=== PATIENT | male | born 2000 | race Caucasian/White ===

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

== ENCOUNTER 2018-02-19 21:35 | Inpatient (IN) | payer OTHER ==
[2018-02-19 23:12] LABS: HEMATOCRIT 45.7 % (42.0-52.0); HEMOGLOBIN 16.1 g/dl (13.5-17.5); MEAN CORPUSCULAR HGB CONC 35.2 g/dl (32.0-36.5); MEAN CORPUSCULAR VOLUME 85.1 fl (80.0-96.0); PLATELET COUNT, AUTOMATED 283 10^3/uL (150-450); RED BLOOD COUNT 5.37 10^6/uL (4.30-6.10); RED CELL DISTRIBUTION WIDTH 12.1 % (11.5-14.5); WHITE BLOOD COUNT 5.9 10^3/uL (4.0-10.0)
[2018-02-19 23:54] LABS: AMPHETAMINES LEVEL URINE NEGATIVE (NEGATIVE); BARBITURATES URINE NEGATIVE (NEGATIVE); BENZODIAZEPINES URINE NEGATIVE (NEGATIVE); CANNABINOIDS URINE NEGATIVE (NEGATIVE); COCAINE METABOLITE URINE NEGATIVE (NEGATIVE); METHADONE URINE NEGATIVE (NEGATIVE); OPIATES URINE NEGATIVE (NEGATIVE); PHENCYCLIDINE URINE NEGATIVE (NEGATIVE)
[2018-02-19 23:55] LABS: ALBUMIN 3.9 GM/DL (3.2-5.2); ALBUMIN/GLOBULIN RATIO 1.11 (1.00-1.93); ALKALINE PHOSPHATASE 72 U/L (45-117); ALT/SGPT 22 U/L (12-78); ANION GAP 8 MEQ/L (8-16); AST/SGOT 12 U/L (7-37); BILIRUBIN,DIRECT 0.1 MG/DL (0.0-0.2); BILIRUBIN,TOTAL 0.4 MG/DL (0.2-1.0); BLOOD UREA NITROGEN 17 MG/DL (7-18); CARBON DIOXIDE LEVEL 27 MEQ/L (21-32); CHLORIDE LEVEL 105 MEQ/L (98-107); CREATININE FOR GFR 1.01 MG/DL (0.70-1.30); GLUCOSE, FASTING 103 MG/DL (70-100); POTASSIUM SERUM 3.9 MEQ/L (3.5-5.1); SALICYLATE LEVEL < 1.7 MG/DL (5.0-30.0); SODIUM LEVEL 140 MEQ/L (136-145); TOTAL PROTEIN 7.4 GM/DL (6.4-8.2)
[2018-02-20 00:05] LABS: ACETAMINOPHEN LEVEL < 2.0 UG/ML (10.0-30.0); ETHYL ALCOHOL (ETHANOL) < 0.003 % (0.000-0.010)
[2018-02-20] MEDS ORDERED: ACETAMINOPHEN TAB 650MG DOSE (2X325MG) PO (02:00)
[2018-02-20] MEDS ORDERED: MAALOX 30 ML SUSP *UDC PO (02:00)
[2018-02-20] MEDS ORDERED: MOM 30ML SUSPENSION UDC PO (02:00)
[2018-02-20] MEDS ORDERED: OLANZapine ORAL DISINTEGRATING TAB 5MG PO (05:15)
[2018-02-20] MEDS: traZODone 50 MG TAB PO (20:10)
[2018-02-21] MEDS: traZODone 50 MG TAB PO (20:53)
[2018-02-22] MEDS: SERTRALINE HCL 25 MG TABLET PO (11:20)
[2018-02-22] MEDS: QUEtiapine FUMARATE 50 MG TAB PO (20:15)
[2018-02-22] MEDS: PRAZOSIN 1 MG CAP PO (20:16)
[2018-02-23] MEDS: SERTRALINE HCL 25 MG TABLET PO (10:07)
== END 2018-02-23 10:50 | disposition home or self-care (01) | DRG 881 ==
LOC: M ED INP 02-20 01:51 → M PSY 02-20 03:36 → M ED 21:35
DX: F32.9 Major depressive disorder, single episode, unspecified (principal); F51.01 Primary insomnia; F43.10 Post-traumatic stress disorder, unspecified; Z91.018 Allergy to other foods; F17.210 Nicotine dependence, cigarettes, uncomplicated

== ENCOUNTER 2018-05-27 08:53 | Emergency (ER) | payer OTHER ==
[2018-05-27] MEDS: KETOROLAC 30 MG/ML VIAL (J1885) IV (09:28)
[2018-05-27] MEDS: dexameTHASONE 20 MG/5 ML VIAL (J1100) IV (09:28)
[2018-05-27 10:01] LABS: CONTROL LINE MONO INT CTR LINE PRESENT; MONO SCRN NEGATIVE (NEGATIVE)
== END 2018-05-27 11:01 | disposition home or self-care (01) ==
LOC: M ED 08:53
DX: J02.8 Acute pharyngitis due to other specified organisms (principal); F32.9 Major depressive disorder, single episode, unspecified
CPT/HCPCS: J1100

== ENCOUNTER 2018-07-30 05:34 | Day surgery (SDC) | payer OTHER ==
[~2018-07-30] VITALS: Ht 188 cm; Wt 113.4 kg
[~2018-07-30 05:34] MED LIST: MINI1CAP PO; QUET5TAB PO; SERT25TA PO; SERT25TA88; TRAZO50TA PO
[2018-07-30] MEDS ORDERED: LR 1,000 ML IV ONE (06:00)
[2018-07-30] MEDS ORDERED: LIDOCAINE 1% MDV 20ML VIAL As Ordered ONE (06:28)
[2018-07-30] MEDS ORDERED: BUPIVACAINE HCL 0.5% 10 ML VIAL As Ordered ONE (06:28)
[2018-07-30] MEDS ORDERED: LIDOCAINE 2% INJ 100 MG/5 ML SDV (FOR ANES.) As Ordered ONE (07:13)
[2018-07-30] MEDS ORDERED: PROPOFOL 200 MG/20 ML VIAL As Ordered ONE (07:13)
[2018-07-30] MEDS ORDERED: ROCURONIUM BROMIDE 50 MG/5 ML VIAL As Ordered ONE (07:13)
[2018-07-30] MEDS ORDERED: fentaNYL 250 MCG/5 ML INJECTION (J3010) As Ordered ONE (07:14)
[2018-07-30] MEDS ORDERED: MIDAZOLAM INJ 2 MG/2 ML VIAL (J2250) As Ordered ONE (07:14)
[2018-07-30] MEDS ORDERED: ONDANSETRON 4MG/2ML VIAL (J2405) As Ordered ONE (07:46)
[2018-07-30] MEDS ORDERED: KETOROLAC 60 MG/2 ML VIAL (J1885) As Ordered ONE (07:46)
[2018-07-30] MEDS ORDERED: dexameTHASONE 4 MG/ML 1ML VIAL (J1100) As Ordered ONE (07:46)
[2018-07-30] MEDS ORDERED: SUGAMMADEX SODIUM 500 MG/5 ML VIAL (BRIDION) As Ordered ONE (07:46)
[2018-07-30] MEDS ORDERED: METOCLOPRAMIDE INJ 10MG/2ML VIAL (J2765) As Ordered ONE (07:46)
[2018-07-30] MEDS ORDERED: MEPERIDINE INJ 25 MG/ML VIAL (J2175) As Ordered ONE (08:16)
--- NOTE | 2018-07-30 08:26 | RO ---
DATE OF PROCEDURE: 07/30/2018 PREOPERATIVE DIAGNOSIS: Chronic tonsillitis, tonsil hypertrophy and tonsil stones. POSTOPERATIVE DIAGNOSIS: Chronic tonsillitis, tonsil hypertrophy and tonsil stones. OPERATION PERFORMED: Coblation tonsillectomy. SURGEON: Robbi Wooetn Jr, MD GARNETT MACHINE OPERATOR: ANESTHESIA: General via endotracheal tube. PROCEDURE IN DETAIL: With the patient in the supine position after being induced and being prepped and draped in the usual fashion and turned 90 degrees, the patient was placed in the Hyacinth position. After a timeout was performed and correct identification, the Femi mouth gag was placed with a grooved tongue blade, followed by a red rubber Helm through the right nasal cavity and brought out through the oral cavity for soft palate retraction. Attention then was drawn to exposure and the left tonsil which was quite large was grasped with the curved Allis clamp and medialized. Coblation EVAC 70 wand was utilized to dissect the left tonsil out with the coblation setting of 7 and coag 3. This was removed without any bleeding or any problems. In a similar fashion, the right side was also medialized and then dissected out as well. Again, without any bleeding or any complications. Next, the adenoid pad was inspected and there was no evidence of any adenoid hypertrophy. There was some bluish hue and hypertrophy of the posterior aspect of the inferior turbinates. Next, attention then was drawn to irritating the tonsillar fossas with the tonsillar sponges. No bleeding occurred. Then approximately 2.5 mL of a mixture of bupivacaine 0.5% and lidocaine 1% was injected into the tonsillar fossas superficially with a 27 gauge needle for postoperative analgesia. This was done very carefully to prevent any injection and aspirating prior to injection. At this point, Valsalvas were done. Tonsillar fossas were irritated. Minimal spot cautery was required to stop the minimal bleeding. The estimated blood loss was less than 1 mL and was essentially trace. There were no complications. The patient was taken to recovery room in satisfactory condition. TYRONE
[2018-07-30] MEDS ORDERED: MEPERIDINE INJ 25 MG/ML VIAL (J2175) IV PRN (08:30)
[2018-07-30] MEDS ORDERED: LR 1,000 ML IV SCH (08:30)
[2018-07-30] MEDS ORDERED: ONDANSETRON 4MG/2ML VIAL (J2405) IV PRN (08:30)
[2018-07-30] MEDS ORDERED: HYDROcodone/APAP LIQUID 7.5-325MG 15ML UDC (LORTAB ELIXIR) PO PRN (08:30)
[2018-07-30] MEDS ORDERED: fentaNYL 100 MCG/2 ML INJECTION (J3010) IV PRN (08:30)
[2018-07-30] MEDS ORDERED: PERCOCET 5MG/325MG TAB PO PRN (08:30)
[2018-07-30 09:45] VITALS: BP 119/60
== END 2018-07-30 10:23 | disposition home or self-care (01) ==
LOC: M SDC 05:34
PROVIDERS: ATTEND Otolaryngology
DX: J35.01 Chronic tonsillitis (principal); J35.1 Hypertrophy of tonsils
CPT/HCPCS: 42826; 88302; J1100; J1885; J2250; J2405; J2765; J3010

== ENCOUNTER 2018-08-04 05:39 | Emergency (ER) | payer OTHER ==
[~2018-08-04] VITALS: Ht 188 cm; Wt 109.1 kg
[2018-08-04] MEDS ORDERED: NS 1,000 ML IV ONE (06:15)
[2018-08-04] MEDS ORDERED: MORPHINE 4 MG/ML 1ML VIAL/SYRINGE (J2270) IV ONE (06:30)
[2018-08-04 06:40] LABS: BASO % 0.6 % (0.0-1.0); EOS # 0.2 10^3/uL (0.0-0.50); EOS % 3.2 % (0.0-3.0); HEMATOCRIT 48.4 % (42.0-52.0); HEMOGLOBIN 16.5 g/dl (13.5-17.5); LYMPH # 2.2 10^3/uL (1.5-6.5); LYMPH % 32.3 % (24.0-44.0); MEAN CORPUSCULAR HEMOGLOBIN 29.3 pg (27.0-33.0); MEAN CORPUSCULAR HGB CONC 34.1 g/dl (32.0-36.5); MONO # 0.9 10^3/uL (0.0-0.8); MONO % 13.6 % (0.0-5.0); NEUTROPHILS # 3.4 10^3/uL (1.8-7.7); PLATELET COUNT, AUTOMATED 317 10^3/uL (150-450); RED BLOOD COUNT 5.63 10^6/uL (4.30-6.10); WHITE BLOOD COUNT 6.8 10^3/uL (4.0-10.0)
[2018-08-04 06:57] LABS: INR 1.03; PROTHROMBIN TIME 13.6 SECONDS (12.1-14.4)
[2018-08-04 06:58] LABS: PARTIAL THROMBOPLASTIN TIME 33.1 SECONDS (25.4-37.6)
[2018-08-04 08:59] VITALS: BP 127/66
== END 2018-08-04 09:29 | disposition home or self-care (01) ==
LOC: M ED 05:39
DX: K91.841 Postprocedural hemorrhage of a digestive system organ or structure following other procedure (principal)
CPT/HCPCS: 85025; 85610; 85730; 86850; 86900; 86901; 96361; 96374; 99283; J2270

== ENCOUNTER 2018-10-30 08:48 | Emergency (ER) | payer OTHER ==
[~2018-10-30] VITALS: Ht 188 cm; Wt 108.2 kg
[2018-10-30 08:48] VITALS: BP 120/72
[~2018-10-30 08:48] MED LIST changes: -SERT25TA PO; +SERT25TA85 PO
[2018-10-30] MEDS ORDERED: PATA0.2S OP (09:11)
[2018-10-30] MEDS ORDERED: FLON1SPR NARES (09:11)
== END 2018-10-30 09:20 | disposition home or self-care (01) ==
LOC: M ED 08:48
DX: H10.32 Unspecified acute conjunctivitis, left eye (principal); Z91.018 Allergy to other foods